=== PATIENT | female | born 2005 | race Caucasian/White ===

== ENCOUNTER 2024-07-18 20:03 | Emergency (ER) | payer OTHER, SELFPAY ==
[2024-07-18 20:07] VITALS: BP 134/80; PULSE 96; RESP 18; TEMP 36.8; O2SAT 94
[2024-07-18 20:49] LABS: Ur Creatinine Normal (Normal); Ur Specific Gravity Normal (Normal); Urine Amphetamines Negative (Negative); Urine Barbiturates Negative (Negative); Urine Benzodiazepines Negative (Negative); Urine Cocaine Negative (Negative); Urine MDMA Negative (Negative); Urine Methadone Negative (Negative); Urine Methamphetamines Negative (Negative); Urine Opiates Negative (Negative); Urine Oxycodone Negative (Negative); Urine Phencyclidine Negative (Negative); Urine THC Positive (Negative); Urine Tricyclic Antidepressant Negative (Negative); Urine pH Normal (Normal)
[2024-07-18] MEDS: risperiDONE 1 MG TABLET 2.25 MG PO (22:21)
[2024-07-18] MEDS: OXcarbazepine 150 MG TABLET 300 MG PO (22:22)
[2024-07-18] MEDS: hydrOXYzine HCL 25 MG TABLET 50 MG PO (22:22)
[2024-07-18 23:53] VITALS: PULSE 88; RESP 19; O2SAT 93
[2024-07-18 23:59] VITALS: BP 125/66
[2024-07-19 01:20] LABS: Add Manual Diff / Slide Review NO; Basophils Absolute Auto 400 /uL (0-100); Basophils Percent Auto 4.3 % (0-2); Eosinophils Absolute Auto 100 /uL (0-450); Eosinophils Percent Auto 1.3 % (2-4); Hematocrit 39.3 % (36-46); Hemoglobin 13.7 g/dL (12.0-16.0); Lymphocytes Absolute Auto 2000 /uL (1100-4500); Lymphocytes Percent Auto 19.6 % (25-40); Mean Corpuscular HGB Conc 34.8 % (30-36); Mean Corpuscular Hemoglobin 30.6 PG (26-34); Mean Corpuscular Volume 87.9 fL (80-100); Monocytes Absolute Auto 700 /uL (0-900); Monocytes Percent Auto 6.5 % (3-14); Neutrophils Absolute Auto 6900 /uL (1500-7000); Neutrophils Percent Auto 68.3 % (50-75); Platelet Count 298 X10^3/uL (150-400); Red Blood Cell Count 4.47 X10^6/uL (4.0-5.2); Red Cell Distribution Width 12.8 % (11.6-14.8); White Blood Cell Count 10.1 X10^3/uL (4.5-11.0)
[2024-07-19 01:27] LABS: Acetaminophen < 10 ug/mL (10-30); Alanine Aminotransferase 22 IU/L (<35); Albumin 4.3 g/dL (3.5-5.0); Albumin Globulin Ratio 1.6 (1.0-2.8); Alkaline Phosphatase 93 U/L (38-126); Aspartate Aminotransferase 25 IU/L (14-36); BUN Creatinine Ratio 14.1 (6-22); Bilirubin Total 0.6 mg/dL (0.2-1.3); Blood Urea Nitrogen 9 mg/dL (7-17); Calcium 9.2 mg/dL (8.4-10.2); Carbon Dioxide 26 mmol/L (22-32); Chloride 104 mmol/L (98-107); Estimated Glomerular Filt Rate > 60 mL/min (>60); Ethanol (ETOH) < 10 mg/dL; Globulin 2.7 g/dL (1.7-4.1); Glucose 100 mg/dL (70-100); HEMOLYSIS < 15 (0-50); Potassium 3.8 mmol/L (3.4-5.1); Salicylate < 1.0 mg/dL (<20); Sodium 138 mmol/L (137-145)
--- NOTE | 2024-07-19 01:36 | ED_ITS ---
HPI - Psych General Chief Complaint: Psychiatric Symptoms Stated Complaint: SI Time Seen by Provider: 07/18/24 20:34 Source: patient and family Mode of arrival: Ambulatory History of Present Illness HPI Narrative: 18-year-old woman [place], history of borderline personality disorder currently with concerns for suicidal ideation with feelings of being unsafe and needing to harm herself with episodes of self-harm escalating over the last 2 weeks. She does have a psychiatrist and also an equine therapist [place]. She is currently taking all medications as prescribed including hydroxyzine, risperidone, venlafaxine, oxcarbazepine. She is accompanied by her father to the emergency department requesting inpatient care in the setting of increasing suicidal ideation. When she does resort to self-harm she tends to cut both her thighs, she also has some nor cut on her left deltoid area. None are new within the last 12 hours and need repair today Related Data Home Medications Medication Instructions Recorded Confirmed desvenlafaxine succinate 100 mg 100 mg PO QAM 07/18/24 07/18/24 tablet,extended release 24 hr hydroxyzine HCl 50 mg tablet 50 mg PO 3XD 07/18/24 07/18/24 oxcarbazepine 300 mg tablet 300 mg PO BID 07/18/24 07/18/24 risperidone 0.25 mg tablet 0.25 mg PO QAM 07/18/24 07/18/24 risperidone 2 mg tablet 2.25 mg PO ONCE PM 07/18/24 07/18/24 Allergies Allergy/AdvReac Type Severity Reaction Status Date / Time No Known Drug Allergies Allergy Verified 07/18/24 20:07 Review of Systems Review of Systems Narrative: Pertinent positive and negative findings as per HPI Patient History Medical History (Updated 07/19/24 @ 01:49 by Latonia Carrion MD) Deliberate self-cutting Suicidal ideation Borderline personality disorder Social History Smoking Status: Current every day smoker Smoking Status: Current every day smoker tobacco type: vaping Exam Initial Vital Signs Initial Vital Signs: Vital Signs Temperature 98.3 F 07/18/24 20:07 Pulse Rate 96 H 07/18/24 20:07 Respiratory Rate 18 07/18/24 20:07 Blood Pressure 134/80 07/18/24 20:07 Pulse Oximetry 94 07/18/24 20:07 Oxygen Delivery Method Room Air 07/18/24 20:07 General: Healthy appearing, in no acute distress. Able to cooperate with history HEENT: Moist mucous membranes, normal sclera with reactive pupils, Respiratory: Lungs are clear to auscultation, no wheezing no rales no rhonchi. Full and symmetrical air movement Cardiac: Regular rate and rhythm no murmurs no bruits Abdomen: Soft, nontender, no rebound or guarding, no flank pain Skin: Scars to the upper thighs and left at our deltoid area from self cutting, none currently infected nor acute enough to need repair this evening Neurologic: Grossly neurologically intact with no obvious asymmetries or abnormalities Psych: Cooperative, no flight of ideas, nonpressured thought content, expresses continued thoughts of suicidal ideation Course Orders Ordered: ED Orders 07/18/24 20:18 Consult to [facility] [place] - Bleaching Machine Operator Stat Acetaminophen Stat Complete Blood Count AUTO DIFF Stat Comprehensive Metabolic Panel Stat Ethanol (ETOH) Stat Free T4, Direct Thyroxine Stat Salicylate Stat Thyroid Stimulating Hormone Stat 07/18/24 20:35 Urine Drug Screen, Rapid Stat 07/18/24 21:00 Consult to [facility] Ble[employer] Machine Operator Stat 07/19/24 01:55 COVID19 -Nasal RAPID Stat Hydroxyzine HCl (Hydroxyzine Hcl 25 Mg Tablet) 50 mg PO TID [facility] Last Admin: 07/18/24 22:22 Dose: 50 mg Documented By: JORDAN Oxcarbazepine (Oxcarbazepine 150 Mg Tablet) 300 mg PO BID [facility] Last Admin: 07/18/24 22:22 Dose: 300 mg Documented By: JORDAN Risperidone (Risperidone 0.25 Mg Tablet) 0.25 mg PO DAILY [facility] Risperidone (Risperidone 1 Mg Tablet) 2.25 mg PO DAILY [facility] Last Admin: 07/18/24 22:21 Dose: 2.25 mg Documented By: JORDAN Vital Signs Vital signs: Vital Signs - 8 hr 07/18/24 23:53 07/18/24 23:59 Pulse Rate 88 Respiratory Rate 19 Blood Pressure 125/66 Pulse Oximetry 93 Oxygen Delivery Method Room Air MDM - Psych Lab Data 07/19/24 01:00 07/19/24 01:00 Labs: Lab Results 07/18/24 07/19/24 07/19/24 Range/Units 20:35 01:00 01:55 WBC 10.1 (4.5-11.0) X10^3/uL RBC 4.47 (4.0-5.2) X10^6/uL Hgb 13.7 (12.0-16.0) g/dL Hct 39.3 (36-46) % MCV 87.9 (80-100) fL MCH 30.6 (26-34) PG MCHC 34.8 (30-36) % RDW 12.8 (11.6-14.8) % Plt Count 298 (150-400) X10^3/uL Neut % (Auto) 68.3 (50-75) % Lymph % (Auto) 19.6 L (25-40) % Blaine % (Auto) 6.5 (3-14) % Eos % (Auto) 1.3 L (2-4) % Baso % (Auto) 4.3 H (0-2) % Neut # (Auto) 6900 (5550-4998) /uL Lymph # (Auto) 2000 (3256-1533) /uL Blaine # (Auto) 700 (0-900) /uL Eos # (Auto) 100 (0-450) /uL Baso # (Auto) 400 H (0-100) /uL Sodium 138 (137-145) mmol/L Potassium 3.8 (3.4-5.1) mmol/L Chloride 104 (98-107) mmol/L Carbon Dioxide 26 (22-32) mmol/L BUN 9 (7-17) mg/dL Creatinine 0.64 (0.52-1.04) mg/dL Estimated GFR > 60 (>60) mL/min BUN/Creatinine Ratio 14.1 (6-22) Glucose 100 (70-100) mg/dL Calcium 9.2 (8.4-10.2) mg/dL Total Bilirubin 0.6 (0.2-1.3) mg/dL AST 25 (14-36) IU/L ALT 22 (<35) IU/L Alkaline Phosphatase 93 (38-126) U/L Total Protein 7.0 (6.3-8.2) g/dL Albumin 4.3 (3.5-5.0) g/dL Globulin 2.7 (1.7-4.1) g/dL Albumin/Globulin Ratio 1.6 (1.0-2.8) TSH 0.949 (0.47-4.68) uIU/mL Free T4 0.84 (0.78-2.19) ng/dL Salicylates < 1.0 (<20) mg/dL U Opiates 300ng/mL cut Negative (Negative) Ur Oxycodone Screen Negative (Negative) Urine Methadone Screen Negative (Negative) Acetaminophen < 10 (10-30) ug/mL Ur Barbiturates Screen Negative (Negative) U Tricyclic Antidepress Negative (Negative) Ur Phencyclidine Scrn Negative (Negative) Ur Amphetamines Screen Negative (Negative) U Methamphetamines Scrn Negative (Negative) Ur MDMA Scrn (Ecstasy) Negative (Negative) U Benzodiazepines Scrn Negative (Negative) Urine Cocaine Screen Negative (Negative) U Marijuana (THC) Screen Positive H (Negative) Urine pH Normal (Normal) Urine Specific [place] Normal (Normal) Ethyl Alcohol < 10 ( - 10) mg/dL Ur Creatinine Normal (Normal) SARS-CoV-2 (PCR) Negative (Negative) Point of Care Testing Test Results Negative Urine Dip Bedside Urine Glucose Negative Bedside Urine Bilirubin - Negative Bedside Urine Ketone - Negative Urine Specific [place] 1.03 Bedside Urine Occult Blood - Negative Bedside Urine pH 5.5 Bedside Urine Protein - Negative Bedside Urine Urobilinogen - Negative Bedside Urine Nitrite - Negative Bedside Urine Leukocytes - Negative Esterase MDM Narrative Medical decision making narrative: CC: Suicidal ideation presents for voluntary inpatient hospitalization requesting [facility] Complicating co-morbidities: Borderline personality disorder, prior self-harm, prior suicidal attempts Data collected from: patient Differential considered: Suicidal ideation, depression, borderline personality disorder with attention seeking behaviors Exam documented above, pertinent findings include: Polite, cooperative, fairly appropriate inside, she is not acutely psychotic, old self injury wounds to upper thighs and lateral deltoid on the left remainder of exam is benign Lab Test results independently reviewed as above. Pertinent findings: CBC is reassuring Chemistries are unremarkable Thyroid is appropriate Urine drug screen shows marijuana only Alcohol level is 0 Salicylates and acetaminophen not detectable Patient is not No evidence of urinary tract infection COVID screen is negative Discussion: 18-year-old woman with depression and current suicidal ideation. Requesting help with voluntary admission to [facility]. She is currently medically cleared we will see if beds were available. Patient has been accepted [facility]. They would like transport arranged for her to arrived there after 11:00 a.m. today. Discharge Plan Departure Patient Disposition: Xfer Psychiatric Hosp Clinical Impression: Suicidal ideation, Intentional self-harm, Borderline personality disorder Prescriptions: No Action oxcarbazepine 300 mg tablet 300 mg PO BID desvenlafaxine succinate 100 mg tablet extended release 24 hr 100 mg PO QAM risperidone 0.25 mg tablet 0.25 mg PO QAM hydroxyzine HCl 50 mg tablet 50 mg PO 3XD risperidone 2 mg tablet 2.25 mg PO ONCE PM
[2024-07-19 01:43] LABS: Free T4, Direct Thyroxine 0.84 ng/dL (0.78-2.19)
[2024-07-19 01:57] LABS: Thyroid Stimulating Hormone 0.949 uIU/mL (0.47-4.68)
--- NOTE | 2024-07-19 01:59 | PC.NURSE ---
Pt resting quietly eith eyes closed, resps even and not labored. No distress noted at this time. Pt rouses easily to verbal stimuli and is cooperative to Covid swab collection. Pt observer is within line of vision.
--- NOTE | 2024-07-19 02:26 | PC.NURSE ---
Addendum entered by Darlene Patricio CNA 07/19/24 04:45: [facility] note: [facility] called and did a phone screening with patient. They faxed over a copy of their behavioral contract, asked me to have patient fill it out, and send back. Once that was done they called and said she was accepted. Accepted at [address] Franklin Bloom MD, pharmacist in charge owner Linnea is the person notified. They asked for patient to arrive after 11am. Called [facility], spoke to Nisha, arranged transport to pickling operator at [place] at 0900, with an arrival at [facility] at 1115. Called [facility] back and let them know. Thanked them for their help. Original Note: [facility] note: Called [facility] at [phone], spoke to [facility]. Stated they have beds but they wouldn't know until morning, after 10 am, if they could take the patient. They said I could fax over a packet. I faxed over a packet and thanked them for their help. Updated charge nurse Deborah and Dr. Carrion.
[2024-07-19 02:27] LABS: COVID19 -Nasal RAPID Negative (Negative)
--- NOTE | 2024-07-19 04:00 | PC.NURSE ---
No change in patient condition or status. Pt resting quietly with eyes closed, resps even and not labored. No distress noted at this time. Father remains at bedside. Pt observer remains within line of vision.
[2024-07-19 07:06] VITALS: BP 90/48; PULSE 70; RESP 18; O2SAT 97
[2024-07-19 09:03] VITALS: BP 129/87; PULSE 107; RESP 14; O2SAT 98
[2024-07-19] MEDS: risperiDONE 0.25 MG TABLET PO (09:03)
[2024-07-19] MEDS: hydrOXYzine HCL 25 MG TABLET 50 MG PO (09:03)
[2024-07-19] MEDS: OXcarbazepine 150 MG TABLET 300 MG PO (09:03)
== END 2024-07-19 09:25 ==
PROVIDERS: Emergency Medicine; Emergency Provider Emergency Medicine
DX: R45.851 Suicidal ideations (principal); F60.3 Borderline personality disorder
CPT/HCPCS: 36415; 80053; 80305; 80320; 80329; 81003; 81025; 84439; 84443; 85025; 87635; 99283; 99284; A9270; G0480

== ENCOUNTER 2024-09-27 16:26 | Emergency (ER) | payer OTHER, SELFPAY ==
[2024-09-27 17:04] VITALS: BP 133/70; PULSE 110; RESP 18; TEMP 36.9; O2SAT 98; BMI 29.3
[2024-09-27 17:42] LABS: Add Manual Diff / Slide Review NO; Basophils Absolute Auto 100 /uL (0-100); Basophils Percent Auto 0.6 % (0-2); Eosinophils Absolute Auto 100 /uL (0-450); Eosinophils Percent Auto 1.2 % (2-4); Hemoglobin 14.6 g/dL (12.0-16.0); Lymphocytes Absolute Auto 2300 /uL (1100-4500); Lymphocytes Percent Auto 19.8 % (25-40); Mean Corpuscular HGB Conc 34.8 % (30-36); Mean Corpuscular Hemoglobin 30.6 PG (26-34); Mean Corpuscular Volume 88.1 fL (80-100); Monocytes Absolute Auto 800 /uL (0-900); Monocytes Percent Auto 6.9 % (3-14); Neutrophils Absolute Auto 8200 /uL (1500-7000); Neutrophils Percent Auto 71.5 % (50-75); Platelet Count 312 X10^3/uL (150-400); Red Blood Cell Count 4.77 X10^6/uL (4.0-5.2); Red Cell Distribution Width 13.2 % (11.6-14.8); White Blood Cell Count 11.4 X10^3/uL (4.5-11.0)
[2024-09-27 17:52] LABS: UR Morphine/Opiate cutoff 300 Negative (Negative); Ur Creatinine Normal (Normal); Ur Specific Gravity Normal (Normal); Urine Amphetamines Negative (Negative); Urine Barbiturates Negative (Negative); Urine Benzodiazepines Negative (Negative); Urine Cocaine Negative (Negative); Urine MDMA Negative (Negative); Urine Methadone Negative (Negative); Urine Methamphetamines Negative (Negative); Urine Oxycodone Negative (Negative); Urine Phencyclidine Negative (Negative); Urine Tetrahydrocannabinol Positive (Negative); Urine Tricyclic Antidepressant Negative (Negative); Urine pH Normal (Normal)
[2024-09-27 17:56] LABS: Bacteria Urine Many (>30); RBC Urine 0-1/HPF (0-5/HPF); Squamous Epithelial Cell Urine 1-5 /HPF (0-5/HPF); Urine Volume 10mL (spun); WBC Urine 0-1/HPF (0-5/HPF)
[2024-09-27 17:57] LABS: Culture Indicated Urine Cult Not Indicated; Mucus Urine 1+ (Negative)
[2024-09-27 17:58] LABS: Acetaminophen < 10 ug/mL (10-30); Alanine Aminotransferase 24 IU/L (<35); Albumin Globulin Ratio 1.6 (1.0-2.8); Alkaline Phosphatase 99 U/L (38-126); Aspartate Aminotransferase 26 IU/L (14-36); BUN Creatinine Ratio 16.9 (6-22); Bilirubin Total 0.5 mg/dL (0.2-1.3); Blood Urea Nitrogen 10 mg/dL (7-17); Calcium 9.2 mg/dL (8.4-10.2); Carbon Dioxide 26 mmol/L (22-32); Chloride 103 mmol/L (98-107); Estimated Glomerular Filt Rate > 60 mL/min (>60); Ethanol (ETOH) < 10 mg/dL (<10); Globulin 3.2 g/dL (1.7-4.1); Glucose 111 mg/dL (70-99); HEMOLYSIS < 15 (0-50); Potassium 3.8 mmol/L (3.4-5.1); Salicylate < 1.0 mg/dL (<20); Sodium 139 mmol/L (137-145); Total Protein 8.2 g/dL (6.3-8.2)
[2024-09-27 19:02] LABS: TSH w/ Reflex to FT4 0.33 uIU/mL (0.47-4.68)
[2024-09-27 19:36] LABS: Free T4, Direct Thyroxine 0.88 ng/dL (0.78-2.19)
== END 2024-09-27 19:51 | disposition left against medical advice (07) ==
PROVIDERS: Emergency Medicine; Emergency Provider Emergency Medicine
DX: F99 Mental disorder, not otherwise specified (principal)
CPT/HCPCS: 36415; 80053; 80305; 80320; 80329; 81003; 81015; 81025; 84439; 84443; 85025; 99283; G0480

== ENCOUNTER 2024-09-28 01:17 | Emergency (ER) | payer OTHER, SELFPAY ==
--- NOTE | 2024-09-28 02:08 | PC.NURSE ---
Pt not in lobby when called to be triaged
[2024-09-28 02:45] VITALS: BP 146/80; PULSE 102; RESP 26; TEMP 37.2; O2SAT 97; BMI 31.8
== END 2024-09-28 04:14 | disposition left against medical advice (07) ==
PROVIDERS: Emergency Provider Emergency Medicine
DX: Z53.21 Procedure and treatment not carried out due to patient leaving prior to being seen by health care provider (principal)
CPT/HCPCS: 99281